=== PATIENT | male | born 1995 | race Caucasian/White ===

== ENCOUNTER 2025-05-17 12:29 | Emergency (ER) | payer MEDICAID ==
[~2025-05-17] VITALS: Ht 162.6 cm; Wt 75.5 kg
[2025-05-17] MEDS ORDERED: TETRAcaine 5 ML BOTTLE ONE (13:08)
[2025-05-17] MEDS ORDERED: FLUORESCEIN SODIUM OPHTH 1 EA STRIP ONE (13:08)
[2025-05-17] MEDS: TETRAcaine 5 ML BOTTLE EACHEYE ONE (13:24)
[2025-05-17] MEDS: FLUORESCEIN SODIUM OPHTH 1 EA STRIP OP ONE (13:24)
[2025-05-17] MEDS ORDERED: ERYT3.5O9 RIGHTEYE (13:50)
[2025-05-17 13:59] VITALS: BP 128/86; TEMP 97.8; O2SAT 99
== END 2025-05-17 13:59 | disposition home or self-care (01) ==
LOC: ER 12:34
DX: S05.01XA Injury of conjunctiva and corneal abrasion without foreign body, right eye, initial encounter (principal); H57.8A1 Foreign body sensation, right eye; R23.2 Flushing; F17.200 Nicotine dependence, unspecified, uncomplicated; X58.XXXA Exposure to other specified factors, initial encounter; Y93.89 Activity, other specified; Y92.89 Other specified places as the place of occurrence of the external cause; Y99.8 Other external cause status